=== PATIENT | female | born 1975 | race Caucasian/White ===

== ENCOUNTER 2023-11-30 13:43 | Outpatient (OUT) | payer BC, SELFPAY | END 2023-11-30 13:44 | disposition home or self-care (01) | LOC: PST 13:44 | PROVIDERS: PCP Family Medicine; Visit Provider Surgery | DX: Z01.818 Encounter for other preprocedural examination (principal); Z12.11 Encounter for screening for malignant neoplasm of colon ==

== ENCOUNTER 2023-12-07 09:08 | Day surgery (SDC) | payer BC, SELFPAY ==
[2023-12-07 09:39] LABS: Glucometer 188 mg/dL (74-106)
[2023-12-07 09:40] VITALS: BP 125/93; PULSE 99; TEMP 36.2; O2SAT 97; BMI 38.6
[2023-12-07] MEDS: LACTATED RINGER'S SOLUTION 1,000 ML 50 ML IV (09:51)
[2023-12-07 09:58] LABS: HCG Qualitative NEGATIVE (NEGATIVE)
[2023-12-07 12:25] VITALS: BP 94/52; PULSE 76; TEMP 36.3; O2SAT 96
[2023-12-07 12:40] VITALS: BP 104/62; PULSE 72; O2SAT 96
[2023-12-07 12:55] VITALS: BP 107/83; PULSE 74; O2SAT 99
--- NOTE | 2023-12-07 13:07 | PM.GSPRC ---
Date of procedure: 12/07/23 Indications for Procedure: screening colonoscopy Pre-op diagnosis: screening colonoscopy Post-op diagnosis: same as pre-op Procedure: Previous colonoscopy: never screening colonoscopy PROCEDURE: The patient was given IV conscious sedation.? The patient's SPO2 remained above 90% throughout the procedure. The colonoscope was inserted per rectum and advanced under direct vision to the cecum without difficulty.? The prep was good.? Findings: Terminal ileum os: normal Cecum/Ascending colon: normal Transverse colon: normal Descending/Sigmoid colon: normal Rectum/Anus: examined in normal and retroflexed positions and was normal Withdrawal Time was (minutes): 10 The colon was decompressed and the scope was removed.? The patient tolerated the procedure well. Recommendations/Plan: 1.? Lifestyle and dietary modifications as discussed 2.? F/U in 10 years for repeat c-scope 3.? Discussed with the family Findings: normal colonoscopy Anesthesia: MAC Surgeon: Polo Paez Procedure Summary: screening colonoscopy Estimated blood loss (mL): 0 Complications: No Pathology: none sent Condition: stable Disposition: PACU
== END 2023-12-07 12:50 | disposition home or self-care (01) ==
PROVIDERS: Anesthesiology; PCP Family Medicine; Visit Provider Surgery
PROC: (CPT 812; principal; 2023-12-07 10:10)
DX: Z12.11 Encounter for screening for malignant neoplasm of colon (principal); Z80.0 Family history of malignant neoplasm of digestive organs; Z79.82 Long term (current) use of aspirin; Z79.84 Long term (current) use of oral hypoglycemic drugs; J45.909 Unspecified asthma, uncomplicated; Z87.891 Personal history of nicotine dependence; E78.5 Hyperlipidemia, unspecified; F41.1 Generalized anxiety disorder; K21.9 Gastro-esophageal reflux disease without esophagitis; I10 Essential (primary) hypertension; D50.9 Iron deficiency anemia, unspecified; E11.9 Type 2 diabetes mellitus without complications; E55.9 Vitamin D deficiency, unspecified
CPT/HCPCS: 45378; 36415; 82948; 84703; J2704

== ENCOUNTER 2024-11-30 09:33 | Outpatient (OUT) | payer OTHER, SELFPAY ==
--- NOTE | 2024-11-30 | RT_ITS ---
[facility] Test Date: 2024-11-30 Pat Name: YVAN CLEARY Department: Room: - Gender: Female Orthopedic Dentist: Lizzy Guerrero RRT : 1975 Requested By: ABDULKADIR DING Order Number: [id number] Reading MD: Parrish Livingston Interpretive Statements Pulmonary function testing was completed according to ATS criteria. Findings were considered accurate and reproducible. No bronchodilator was administered due to normal spirometric values. Spirometry: -FEV1/FVC: Normal @ 84% -FEV1: Normal @ 88% -FVC: Normal @ 83% Lung volumes by plethysmography: -RV: Reduced @ 69% -TLC: Normal @ 86% Diffusion capacity: -DLCO: Severe reduction @ 45% when corrected for Hb 10.4g/dL Impressions: -Essentially normal spirometry and lung volumes with an isolated severe diffusion impairment. This pattern can be seen in, but not restricted to, cardiopulmonary vascular disorders, early interstitial lung disease, and early emphysema. Clinical correlation required. Electronically Signed On 11-30-2024 15:17:51 EDT by Parrish Livingston
--- NOTE | 2024-11-30 08:00 | CA_ITS ---
Patient Name: YVAN CLEARY MR#: [id number] : 1975 Exam Date: 11/30/2024 Ordering Doctor: DR Carlos Mauro . ECHOCARDIOGRAM REPORT PROCEDURE: CA ECHO DOPPLER COMPLETE INDICATIONS: hypertension, edema, shortness of breath on exertion, diabetes COMPARISON: None. DESCRIPTION: COMPLETE ECHOCARDIOGRAM Real-time transthoracic echocardiography with 2D, M-mode, spectral and color flow Doppler performed. QUALITY: Technical quality was good. LEFT VENTRICLE: Normal chamber size. Normal left ventricular wall thickness. Normal LV systolic function, No wall motion abnormalities. Calculated left ventricular ejection fraction is 67%. LV EF: 65% DIASTOLIC: Normal diastolic function. ATRIAL SEPTUM: Appears intact LEFT ATRIUM: Normal chamber size. RIGHT ATRIUM: Mild dilatation. RIGHT VENTRICLE: Normal chamber size. Normal right ventricular systolic function. TRICUSPID VALVE: Normal mobility and thickness. No stenosis with trivial regurgitation. No evidence of pulmonary hypertension.RVSP 31 mmHg MITRAL VALVE: Normal mobility and thickness. No evidence of mitral valve stenosis. There is no mitral annular calcification. Trivial mitral regurgitation. AORTIC VALVE: Normal trileaflet appearance. Normal leaflet mobility. No evidence of aortic valve stenosis. Multifocal calcifications.No aortic regurgitation. AORTIC ROOT: Normal diameter and appearance. Ascending aorta is normal in size PULMONIC VALVE: Normal thickness and mobility. No stenosis. No regurgitation. PERICARDIUM: No evidence of pericardial effusion. IVC: Not well visualized. PLEURA: CONCLUSION: Normal left ventricle chamber size. Normal left ventricular wall thickness. Normal LV systolic function, No wall motion abnormalities. Calculated left ventricular ejection fraction is 67%. Normal left ventricle diastolic function Normal right ventricle chamber size and systolic function. No evidence of pulmonary hypertension. RVSP 31 mmHg No significant valvular abnormalities. Adult Echocardiography Procedure Report Left Ventricle LVEDD (3.7 - 5.6 cm): 4.78 cm LVESD (2.2 - 4.0 cm): 2.90 cm LVIVS thickness (0.6 - 1.2 cm): 0.92 cm LVPW thickness (0.5 - 1.0 cm): 0.81 cm e': 0.10 m/s E - e': 10.82 LVOT Max Gradient: 4.66 mm[Hg] LVOT Area (cm2): 1.08 m/s Peak Velocity (LVOT): 1.08 m/s Mean Velocity (LVOT): 0.71 m/s LVOT Diameter 2.18 cm Left Ventricular Ejection Fraction: Left Atrium LA Volume Index (2D A2C): 30.61 ml/m2 Left Atrium Systolic Dimension: 4.08 cm Mitral Valve MV E to A Ratio: 1.10 MV Max Gradient: MV Mean Gradient: Mitral Valve A-Wave Peak Velocity: 0.99 m/s Mitral Valve E-Wave Peak Velocity: 1.09 m/s Cardiovascular Orifice Area: Right Ventricle RV Internal Diastolic Dimension: Aorta AO Root Diam: 3.43 cm Ascending Ao Diam: 2.69 cm Aortic Valve AoV Area (Peak Reyes): 2.52 cm2, 2.52 cm2 AoV Area (VTI): 2.77 cm2, 2.77 cm2 Deceleration [place]: Pressure Half-Time: Peak Velocity(Antegrade Flow): 1.59 m/s Peak Gradient(Antegrade Flow): 10.16 mm[Hg] Mean Velocity(Antegrade Flow): 1.15 m/s Mean Gradient(Antegrade Flow): 5.84 mm[Hg] Velocity Time Integral: 35.13 cm Tricuspid Valve Peak Velocity (Regurgitant Flow): 2.54 m/s, 2.63 m/s Peak Velocity: Pulmonic Valve Mean Gradient: 3.56 mm[Hg] Mean Velocity: 0.87 m/s Peak Velocity: 1.31 m/s, 1.18 m/s Peak Gradient: 5.59 mm[Hg], 6.84 mm[Hg] Right Atrium Right Atrium Systolic Pressure: 58.75 ml, 58.75 ml Dictated by: Katie Fang MD on 11/30/2024 at 16:21 Approved by: Katie Fang MD on 11/30/2024 at 16:29
[2024-11-30 08:05] LABS: Hemoglobin 10.4 g/dL (12.0-16.0)
--- NOTE | 2024-11-30 09:34 | MM_ITS ---
Patient Name: YVAN CLEARY MR#: [id number] : 1975 Exam Date: 11/30/2024 Ordering Doctor: DR Carlos Mauro . RADIOLOGY REPORT PROCEDURE: MM TOMOSYNTHESIS SCREENING BI COMPARISON: MG MAMM LT DIAG W CAD, 12/30/2017. MG MAMM MARTHA DIAG W CAD, 07/05/2017. MG MAMM MARTHA SCRN W CAD DIG, 10/25/2015. MG MAMM MARTHA SCRN W CAD DIG, 04/05/2014. INDICATIONS: Screening Calculator Name NCI Breast Cancer Risk Assessment Tool 5 Year Breast Cancer Risk 0.90% Lifetime Breast Cancer Risk 8.30% Personal Breast Cancer No Personal Ovarian Cancer No Treatments None Family Cancers None LOCATION: [facility] BREAST COMPOSITION: The breasts are heterogeneously dense,which may obscure small masses. FINDINGS: RIGHT BREAST: No significant suspicious finding. Left breast asymmetry posterior central portion of the left there breast seen with CC view. Spot compression imaging is recommended. may require targeted left breast ultrasound. DIAGNOSTIC CATEGORY 0--INCOMPLETE: NEED ADDITIONAL IMAGING EVALUATION. RECOMMENDATIONS: ADDITIONAL MAMMOGRAPHIC VIEWS REQUIRED: LEFT BREAST - spot compression ULTRASOUND: LEFT BREAST PLEASE NOTE: A NORMAL MAMMOGRAM DOES NOT EXCLUDE THE POSSIBILITY OF BREAST CANCER. A CLINICALLY SUSPICIOUS PALPABLE LUMP SHOULD BE BIOPSIED. Dictated by: Flaco Plascencia DO on 11/30/2024 at 12:01 Approved by: Flaco Plascencia DO on 11/30/2024 at 12:11
== END 2024-11-30 09:34 | disposition home or self-care (01) ==
LOC: CARD 09:34
PROVIDERS: PCP Family Medicine; Visit Provider Family Medicine
DX: Z12.31 Encounter for screening mammogram for malignant neoplasm of breast (principal); I10 Essential (primary) hypertension; R60.0 Localized edema; R06.02 Shortness of breath; R92.8 Other abnormal and inconclusive findings on diagnostic imaging of breast
CPT/HCPCS: 36415; 77063; 77067; 85018; 93306; 94010; 94726; 94729

== ENCOUNTER 2025-06-26 08:46 | Outpatient (OUT) | payer OTHER, SELFPAY ==
--- OUTSIDE RECORDS SUMMARY | 2025-06-16 18:34 | XMS_ITS | Encounter Summary ---
Author Organization [facility] Address [address], [address] [place] [address] Care Team Providers Care Advertising Assistant Manager Name Role Phone Carlos Mauro MD Primary Care Provider + Reason for Visit * ReasonCommentsHead InjuryL forehead abrasion, contusion Encounter Details DateTypeDepartmentCare Team (Latest Contact Info)Aveyxvirhpo08/01/2025 7:34 PM EDT - 06/16/2025 8:35 PM EDTEmerTurn[facility] [address] [id number] Georges Wright MD [address] [place] [address] Closed head injury, initial encounter (Primary Dx); Contusion of forehead, initial encounter; Abrasion of forehead, initial encounter Discharge Disposition: Home or Self Care Social History Tobacco UseTypesPacks/DayYears UsedDateSmoking Tobacco: Never Assessed CommentsNoSex and Gender InformationValueDate RecordedSex Assigned at BirthNot on fileLegal VtjTbuelz56/10/2013 2:03 PM ESTGender IdentityNot on fileSexual OrientationNot on filedocumented as of this encounter Last Filed Vital Signs Vital SignReadingTime TakenCommentsBlood Dkefviwv565/8706/16/2025 7:30 PM EDT Nwlia030506/16/2025 7:30 PM FSJVdtcpxzwbpi81.7 ??C (98.1 ??F)06/16/2025 7:30 PM EDTRespiratory Hehp610508/16/2024 7:30 PM EDTOxygen Gyzujaqkev34%06/16/2025 7:30 PM EDTInhaled Oxygen Concentration--Auxcei181 kg (258 lb)06/16/2025 7:30 PM EDT Zahojf238.1 cm (5' 5 )06/16/2025 7:30 PM EDTBody Mass Index42.9306/16/2025 7:30 PM EDTdocumented in this encounter Discharge Instructions * Discharge Instructions* Georges Wright MD - 06/16/2025 8:13 PM EDT Reasons to return to the ED: Decreasing, fluctuating, or loss of consciousness Increasing confusion or irritability Numbness in arms or legs Pupils become unequal in size Repeated vomiting Seizures Slurred speech or inability to speak Inability to recognize people or places Worsening headaches IT IS OK TO: Go to sleep Use acetaminophen (Tylenol) for headaches Use ice pack on head or neck Eat a light diet Return to school THERE IS NO NEED TO: Check eyes with flashlight Wake up every hour Test reflexes Remain in bed DO NOT: Workout or play sports until you are back to normal Use technology (i.e. no computer, texting, video games, and television) Drink alcohol or use recreational substances documented in this encounter Medications at Time of Discharge MedicationSigDispense QuantityRefillsLast FilledStart DateEnd Date aspirin 81 MG EC tablet Take 1 tablet by mouth daily atorvastatin (LIPITOR) 40 MG tablet Take 1 tablet by mouth daily glipiZIDE (GLUCOTROL) 10 MG tablet Take 2 tablets by mouth 2 times daily (before meals) hydrOXYzine HCl (ATARAX) 10 MG tablet Take 2.5 tablets by mouth 3 times daily as needed for Itching losartan (COZAAR) 25 MG tablet Take 1 tablet by mouth daily montelukast (SINGULAIR) 10 MG tablet Take 1 tablet by mouth nightly pioglitazone (ACTOS) 30 MG tablet Take 1 tablet by mouth dailydocumented as of this encounter Plan of Treatment Not on file documented as of this encounter Visit Diagnoses Diagnosis Closed head injury, initial encounter- Primary Contusion of forehead, initial encounter Abrasion of forehead, initial encounter documented in this encounter Care Teams Team MemberRelationshipSpecialtyStart DateEnd Date Carlos Mauro MD [address] [place] [address] [facility] Jlnvplfk09/1/25documented as of this encounter
--- OUTSIDE RECORDS SUMMARY | 2025-06-26 08:50 | XMS_ITS | Clinical Summary ---
Author Organization [facility] Address [address], [address] [place] [address] Care Team Providers Care Rehab Department Manager Name Role Phone Carlos Mauro MD Primary Care Provider + Allergies No known active allergies Medications MedicationSigDispense QuantityRefillsLast FilledStart DateEnd DateStatus aspirin 81 MG EC tablet Take 1 tablet by mouth dailyActive atorvastatin (LIPITOR) 40 MG tablet Take 1 tablet by mouth dailyActive glipiZIDE (GLUCOTROL) 10 MG tablet Take 2 tablets by mouth 2 times daily (before meals)Active hydrOXYzine HCl (ATARAX) 10 MG tablet Take 2.5 tablets by mouth 3 times daily as needed for ItchingActive losartan (COZAAR) 25 MG tablet Take 1 tablet by mouth dailyActive montelukast (SINGULAIR) 10 MG tablet Take 1 tablet by mouth nightlyActive pioglitazone (ACTOS) 30 MG tablet Take 1 tablet by mouth dailyActive Encounters DateTypeDepartmentCare LddrLfyfuzrqufi15/01/2025 7:34 PM EDT - 06/16/2025 8:35 PM EDTEmerUM[facility] [address] [phone] Georges Wright MD Closed head injury, initial encounter (Primary Dx); Contusion of forehead, initial encounter; Abrasion of forehead, initial encounter Discharge Disposition: Home or Self Care06/16/2025Travelfrom Last 3 Months Social History Tobacco UseTypesPacks/DayYears UsedDateSmoking Tobacco: Never Assessed CommentsNoSex and Gender InformationValueDate RecordedSex Assigned at BirthNot on fileLegal CkkGzsbom02/10/2013 2:03 PM ESTGender IdentityNot on fileSexual OrientationNot on file Last Filed Vital Signs Vital SignReadingTime TakenCommentsBlood Pqbuwjcl889/8711 7:30 PM EDT Aquoq986606/16/2025 7:30 PM AEPIymmpfnmrcj99.7 ??C (98.1 ??F)06/16/2025 7:30 PM EDTRespiratory Krwx971108/16/2024 7:30 PM EDTOxygen Utfdcmgqbm34%06/16/2025 7:30 PM EDTInhaled Oxygen Concentration--Plcfsc051 kg (258 lb)06/16/2025 7:30 PM EDT Carxyi658.1 cm (5' 5 )06/16/2025 7:30 PM EDTBody Mass Index42.9306/16/2025 7:30 PM EDT Plan of Treatment Health MaintenanceDue DateLast DoneCommentsDTaP/Tdap/Td vaccine (1 - Tdap) 1992Flu vaccine (#1)03/16/2025OVID-19 Vaccine ( - season) 2025Polio vaccineAged OutNo longer eligible based on patient's age to complete this topic Insurance Care Teams Team MemberRelationshipSpecialtyStart DateEnd Carlos Mauro MD [address] [place] [address] PCP - GeneralFamily Esuzlchl88/1/25
--- OUTSIDE RECORDS SUMMARY | 2025-06-26 08:50 | XMS_ITS | Clinical Summary ---
Author Organization [employer] [facility] tem Address [id number] [place] [address] Care Team Providers Care Audiology Assistant Name Role Phone Carlos Mauro MD Primary Care Provider [phone] Allergies Active AllergyReactionsCriticalityNoted PferLmedpjlsKwuthizbhrDleeOcg68/01/2017 Medications MedicationSigDispense QuantityRefillsLast FilledStart DateEnd DateStatus atorvastatin (LIPITOR) 40 mg tablet 06/08/2017Active TRUE METRIX GLUCOSE TEST STRIP strip 06/23/2017Active loratadine (CLARITIN) 10 mg tablet 07/04/2017Active losartan (COZAAR) 25 mg tablet 06/03/2017Active metFORMIN XR (GLUCOPHAGE-XR) 500 mg 24 hr tablet 07/07/2017Active montelukast (SINGULAIR) 10 mg tablet 07/04/2017Active naproxen (NAPROSYN) 500 mg tablet 06/08/2017Active famotidine (PEPCID) 20 mg tablet 07/04/2017Active omega-3 fatty acids-fish oil (FISH OIL) 300-1,000 mg capsule Take 2 g by mouth daily.Active L. RHAMNOSUS GG/INULIN (CULTURELLE PROBIOTICS ORAL) Take by mouth.Active fluticasone (FLONASE) 50 mcg/actuation nasal spray Administer 1 spray into each nostril daily.Active Active Problems No known active problems Family History Medical HistoryRelationNameCommentsDiabetesBrotherBell's palsyFatherDiabetes FatherHypertensionFatherOsteoarthritisMotherBreast cancerPaternal AuntPhyllis DiabetesSisterRelationNameStatusCommentsBrotherAliveFatherAliveMotherDeceased Paternal AuntPhyllisAliveSisterAlive Social History Tobacco UseTypesPacks/DayYears UsedDateSmoking Tobacco: FormerCigarettesQuit: 2001Smokeless Tobacco: NeverAlcohol UseStandard Drinks/WeekCommentsYes0 (1 standard drink = 0.6 oz pure alcohol)ChildcareAnswerDate RecordedChildcare Iqidqwz1901/25/2019EmploymentAnswerDate KweuwzbkIgfddrjzdeTbxutsd11/12/2019Purpose - LifeAnswerDate RecordedPurpose and direction in iipxLamgwws56/11/2021 CommentsNoSex and Gender InformationValueDate RecordedSex Assigned at BirthNot on fileLegal KkoLdbjlr68/06/2015 11:52 AM EDTGender IdentityNot on fileSexual OrientationNot on file Last Filed Vital Signs Vital SignReadingTime TakenCommentsBlood Miaxehjy544/8201 8:53 AM EST Pulse--Temperature--Respiratory Rate--Oxygen Saturation--Inhaled Oxygen Concentration--Kqypkt753.3 kg (263 lb)12/05/2024 9:49 AM IPPAwhttk958.1 cm (5' 5 )12/05/2024 9:49 AM EDTBody Mass Index43.77012/05/2024 9:49 AM EDT Plan of Treatment Health MaintenanceDue DateLast DoneCommentsDepression Doohpiwlc07/04/1985Tobacco Juqkqkjjv42/04/1985Adult BMI Follow Up Plan1991Pap Smear1994Zoster (Shingles) Vaccine (1 of 2)2023Influenza Cruqapq41/, 05/10/2019Adult BMI Exfevzphl80DTaP,Tdap and Td Vaccines (2 - Td or Tdap) Medical Devices Not on file Insurance Care Teams Team MemberRelationshipSpecialtyStart DateEnd Date Carlos Mauro MD [facility] - Phbegnj69/27/17
--- OUTSIDE RECORDS SUMMARY | 2025-06-26 08:50 | XMS_ITS | Clinical Summary ---
Author Organization [facility] Address [address] [place] [address] Care Team Providers Care Radio Broadcaster Name Role Phone System, Provider Not In Primary Care Provider Un available Allergies No known active allergies Medications MedicationSigDispense QuantityRefillsLast FilledStart DateEnd DateStatus cefUROXime (CEFTIN) 500 MG tablet Take 500 mg by mouth 2 (two) times a day .Active FLUoxetine (PROZAC) 10 MG capsule Take 10 mg by mouth daily .Active loratadine (CLARITIN) 10 mg tablet Take 10 mg by mouth daily .Active losartan (COZAAR) 25 MG tablet Take 25 mg by mouth daily .Active famotidine (PEPCID) 20 MG tablet Take 20 mg by mouth 2 (two) times a day .Active atorvastatin (LIPITOR) 40 MG tablet Take 40 mg by mouth daily .Active montelukast (SINGULAIR) 10 mg tablet Take 10 mg by mouth nightly .Active glipiZIDE (GLUCOTROL) 10 MG tablet Take 10 mg by mouth 2 (two) times a day before meals .Active Social History Tobacco UseTypesPacks/DayYears UsedDateSmoking Tobacco: Never Assessed CommentsUnknownSex and Gender InformationValueDate RecordedSex Assigned at Not on fileLegal FctDtjbou04/20/2019 1:12 PM ESTGender LdnzismmKficcn15/30/2021 10:07 AM ESTSexual BpkxhopkiizHvxanypy32/30/2021 10:07 AM EST Last Filed Vital Signs Vital SignReadingTime TakenCommentsBlood Iajjvttx708/801 10:00 AM EST Osqjd057508/14/2021 10:00 AM SPVRlnbvauukuf10.9 ??C (98.4 ??F)08/14/2021 10:00 AM ESTRespiratory Bxgs8123 10:00 AM ESTOxygen Ukwpfdqbra42%08/14/2021 10:00 AM ESTInhaled Oxygen Concentration--Daoutu154.6 kg (235 lb)08/14/2021 10:00 AM RGQTktmdl603.1 cm (5' 5 )08/14/2021 10:00 AM ESTBody Mass Index39.111 10:00 AM EST Plan of Treatment Not on file Insurance Care Teams Team MemberRelationshipSpecialtyStart DateEnd Date System, Provider Not In PCP - Ocbeosw22/30/21
--- OUTSIDE RECORDS SUMMARY | 2025-06-26 08:50 | XMS_ITS | Clinical Summary ---
Author Organization [facility] Healthcare Address [address] [place] [address] Care Team Providers Care Senior Engineering Team Leader Name Role Phone Carlos Mauro MD Primary Care Provider [phone] Allergies Active AllergyReactionsCriticalityNoted NgkoFderevhgColwauyendOnggPbh18/01/2017 Temenphjixpch09/25/2024Metformin XhaOqlugkwa52/09/8543Eaxsrmwysmh94/25/2024 Medications MedicationSigDispense QuantityRefillsLast FilledStart DateEnd DateStatus famotidine (Pepcid) 20 MG tablet Take 20 mg by mouth in the morning.Active aspirin 81 MG EC tablet Take 81 mg by mouth DailyActive Calcium 250 MG capsule 08/16/2019Active cholecalciferol (Vitamin D-3) 10 MCG (400 UNIT) capsule 08/16/2019Active fluticasone (Flonase) 50 MCG/ACT nasal spray Administer 1 spray into affected nostril(s) in the morning.08/16/1999Active glucose blood (True Metrix Blood Glucose Test) test strip Indications:Type 2 diabetes mellitus with hyperglycemia, without long-term current use of insulin (HCC)1 each by Other route Daily 50 each ctive ferrous sulfate 325 (65 Fe) MG EC tablet Take 325 mg by mouth in the morning and 325 mg at noon and 325 mg in the evening. Take with meals. Do not crush, chew, or split..Active montelukast (Singulair) 10 MG tablet Indications:Seasonal allergic rhinitis due to pollenTake 1 tablet (10 mg) by mouth at bedtime 90 tablet ctive losartan (Cozaar) 25 MG tablet Indications:Essential (primary) hypertensionTAKE 1 TABLET BY MOUTH DAILY 90 tablet 4Active albuterol HFA 90 mcg/act inhaler Indications:Mild intermittent asthma without complication (HCC)Inhale 2 puffs every 4 (four) hours if needed for wheezing 18 g 4Active pioglitazone (Actos) 45 MG tablet Indications:Type 2 diabetes mellitus with hyperglycemia, without long-term current use of insulin (HCC)TAKE 1 TABLET BY MOUTH DAILY 30 tablet 5035Active hydrOXYzine HCl (Atarax) 25 MG tablet Indications:Generalized anxiety disorderTAKE 1 TABLET BY MOUTH FOUR TIMES DAILY NEEDED FOR ITCHING 120 tablet 3045Active glipiZIDE (Glucotrol) 10 MG tablet Indications:Type 2 diabetes mellitus with hyperglycemia (HCC)Take 2 tablets (20 mg) by mouth in the morning and 2 tablets (20 mg) before bedtime. 120 tablet 505Active atorvastatin (Lipitor) 40 MG tablet Indications:DyslipidemiaTake 1 tablet (40 mg) by mouth at bedtime 30 tablet 505Active Active Problems ProblemNoted DateDiagnosed DateAbnormal mammogram of left ivnxuh7711/30/2024SOB (shortness of breath) on /26/2025 Assessment & Plan (11/08/2024 1:40 PM EDT): Check echo and PFTs. Bilateral leg edema11/08/2024 Assessment & Plan (11/08/2024 1:39 PM EDT): Recent edema and SOB. Check echo. Annual physical exam11/08/2024 Assessment & Plan (11/08/2024 1:37 PM EDT): Due for labs. Discussed proper diet and regular aerobic exercise. Need aerobic exercise 5-6 days a week for 30 minutes at a time. Smaller portions and limit total calories. Colonoscopy every 10 years. Tetanus every 10 years. Advised not to smoke. Mild intermittent asthma without oihuqvytydvd34/26/2024 Assessment & Plan (05/10/2024 8:23 AM EDT): Occasional symptoms and use albuterol PRN. Assessment & Plan (02/09/2024 7:55 AM EDT): Occasional symptoms and use albuterol PRN. Class 3 severe obesity due to excess calories with serious comorbidity and body mass index (BMI) of40.0 to 44.9 in adult12/07/2023 Assessment & Plan (11/08/2024 1:39 PM EDT): Weight loss indicated Assessment & Plan (02/09/2024 7:57 AM EDT): Weight loss indicated Encounter for long-term (current) use of hnqgkvjpbed55/23/2024Essential hypertension, qhohve6611/08/2023 Assessment & Plan (11/08/2024 1:40 PM EDT): BP elevated but previously normal and need to monitor PRN. Assessment & Plan (05/10/2024 8:23 AM EDT): BP controlled and monitor PRN. Assessment & Plan (02/09/2024 7:55 AM EDT): BP controlled and monitor PRN. Assessment & Plan (11/08/2023 8:54 AM EDT): BP controlled and monitor PRN. Allergic rhinitis due to bnmurx6111/08/2023 Assessment & Plan (02/09/2024 7:55 AM EDT): Symptoms controlled with medication and continue. Assessment & Plan (11/08/2023 8:54 AM EDT): Symptoms controlled with medication and continue. Hxtkcfevzzbx33/25/2024Generalized anxiety afotjdji93/25/2024 Assessment & Plan (05/10/2024 8:23 AM EDT): Symptoms stable without prozac and monitor. Use hydroxyzine PRN. Assessment & Plan (11/08/2023 8:54 AM EDT): Mood controlled with prozac and continue. Use hydroxyzine PRN. Gastroesophageal reflux dewbqbq1811/08/2023 Assessment & Plan (02/09/2024 7:55 AM EDT): Symptoms controlled with pepcid and continue. Assessment & Plan (11/08/2023 8:54 AM EDT): Symptoms controlled with pepcid and continue. Iron deficiency anemia, whxenugaewl48/25/2024Type 2 diabetes mellitus with hyperglycemia, without long-term current use of zzvnzwt1811/08/2023 Assessment & Plan (11/08/2024 1:40 PM EDT): Due for A1C. Assessment & Plan (05/10/2024 8:23 AM EDT): Reports BS improved and recent A1C 7.4. Stick to ADA diet and limit carbs. Assessment & Plan (02/09/2024 7:55 AM EDT): Reports BS improved and due for A1C. Stick to ADA diet and limit carbs. Assessment & Plan (11/08/2023 8:54 AM EDT): BS elevated and will again attempt prior auth for rybelsus. Stick to ADA diet and limit carbs. Vitamin D phzrptexlb90/25/2024 Resolved Problems ProblemNoted DateDiagnosed DateResolved DateInflamed skin tag05/10/2024 11/08/2024 Assessment & Plan (05/15/2024 8:53 AM EDT): Used liquid nitrogen to perform 3 freeze thaw cycles and patient tolerated well. Warned may form blister and likely will take multiple treatments. If develop new or worsening symptoms call. Assessment & Plan (05/10/2024 8:23 AM EDT): Irritated skin tags and requests removal. Return for cryo. Encounters DateTypeDepartmentCare ZpsyWfzanairtek72/19/2025Refill [facility] [address] [place] [address] Carlos Mauro MD Dyslipidemiafrom Last 3 Months Family History Medical HistoryRelationNameCommentsDiabetesBrother 1Steve FeuchtHyperlipidemia Brother 1Steve FeuchtHypertensionBrother 1Steve FeuchtDiabetesBrother 2John FeuchtHyperlipidemiaBrother 2John FeuchtHypertensionBrother 2John FeuchtDiabetes FatherLarry FeuchtHeart diseaseFatherLarry FeuchtHyperlipidemiaFatherLarry FeuchtHypertensionFatherLarry FeuchtArthritisMotherPenny FeuchtDiabetesMother Lisa FeuchtHeart diseaseMotherPenny FeuchtHyperlipidemiaMotherPenny Feucht HypertensionMotherPenny FeuchtDiabetesSisterCarie BurkesHyperlipidemiaSister Liz BurkesHypertensionSisterCarie BurkesRelationNameStatusCommentsBrother 1 Tyree FeuchtBrother 2John FeuchtFatherLarry FeuchtMotherPenny FeuchtSisterCarie Marcus Social History Tobacco UseTypesPacks/DayYears UsedDateSmoking Tobacco: FmyrrdGykscahgit369 08/16/1986 - 08/16/2000Smokeless Tobacco: Never Tobacco Cessation:Counseling Given: Not Answered Alcohol UseStandard Drinks/WeekCommentsNot Currently0 (1 standard drink = 0.6 oz pure alcohol)maybe 2 glasses of wine/beer/mixed drink once a monthSocial Connection and Isolation PanelAnswerDate RecordedIn a typical week, how many times do you talk on the phone with family, friends, or neighbors?Three times a week11/01/2023How often do you get together with friends or relatives?Once a week11/01/2023How often do you attend muslim or quaker services?Never 4Do you belong to any clubs or organizations such as muslim groups, unions, fraternal or athletic groups, or school groups?No11/01/2023How often do you attend meetings of the clubs or organizations you belong to?Never11/01/2023 Are you , , , , never , or living with a partner?Xtqdhdd91/18/2024AUDIT-CAnswerDate RecordedQ1: How often do you have a drink containing alcohol?Monthly or less11/01/2023Q2: How many drinks containing alcohol do you have on a typical day when you are drinking?1 or Q3: How often do you have six or more drinks on one occasion?Never11/01/2023Overall Financial Resource Strain (CARDIA)AnswerDate RecordedHow hard is it for you to pay for the very basics like food, housing, medical care, and heating?Somewhat hard11/01/2023[facility] [place] [facility] - Occupational Stress QuestionnaireAnswerDate RecordedDo you feel stress - tense, restless, nervous, or anxious, or unable to sleep at night because yourmind is troubled all the time - these days?Not at all11/01/2023Exercise Vital SignAnswerDate RecordedOn average, how many days per week do you engage in moderate to strenuous exercise (like a brisk walk)?1 day11/01/2023On average, how many minutes do you engage in exercise at this level?10 min11/01/2023Hunger Vital SignAnswerDate Recorded Within the past 12 months, you worried that your food would run out before you got the money to buymore.Never true11/01/2023Within the past 12 months, the food you bought just didn't last and you didn't have money to get more.Never true 11/01/2023RAPARE - TransportationAnswerDate RecordedIn the past 12 months, has lack of transportation kept you from medical appointments or from getting medications?No11/01/2023In the past 12 months, has lack of transportation kept you from meetings, work, or from getting things needed for daily living?No 11/01/2023Housing Stability Vital SignAnswerDate RecordedIn the last 12 months, was there a time when you were not able to pay the mortgage or rent on time?No 11/01/2023In the last 12 months, how many places have you lived?In the last 12 months, was there a time when you did not have a steady place to sleep or slept in hoopleelter (including now)?No03/18/2024CommentsUnknown Sex and Gender InformationValueDate RecordedSex Assigned at BirthNot on file Legal DvbJlefdr61/27/2023 9:03 AM EDTGender IdentityNot on fileSexual OrientationNot on file Last Filed Vital Signs Vital SignReadingTime TakenCommentsBlood Gvkfctgu902/90011/08/2024 1:14 PM EDT Ugqcj54243/26/2025 1:14 PM QJVWfmcvrhmdzl04.4 ??C (97.5 ??F)11/08/2024 1:14 PM EDTRespiratory Mefh365411/08/2024 1:14 PM EDTOxygen Zgwlcydrva32%11/08/2024 1:14 PM EDTInhaled Oxygen Concentration--Oonecv587 kg (260 lb)11/08/2024 1:14 PM EDT Vrstee896.1 cm (5' 5 )11/08/2024 1:14 PM EDTBody Mass Index43.27011/08/2024 1:14 PM EDT Plan of Treatment Not on file Insurance * Guarantor: Latosha Cleary TypeRelation to PatientDate of PhoneBilling AddressPersonal/EinjrhZlvt[address] [address] Care Teams Team MemberRelationshipSpecialtyStart DateEnd Date Carlos Mauro MD PCP - GeneralFamily Medicine09/21/23
--- OUTSIDE RECORDS SUMMARY | 2025-06-26 08:50 | XMS_ITS | Encounter Summary ---
Author Organization [facility] Address [address], [address] [place] [address] Care Team Providers Care Lime Trimmer Name Role Phone Carlos Mauro MD Primary Care Provider + Encounter Details DateTypeDepartmentCare Team (Latest Contact Info)Ddeklofqwqz16/01/2025Travel Social History Tobacco UseTypesPacks/DayYears UsedDateSmoking Tobacco: Never Assessed CommentsNoSex and Gender InformationValueDate RecordedSex Assigned at BirthNot on fileLegal XfzXhwibz94/10/2013 2:03 PM ESTGender IdentityNot on fileSexual OrientationNot on filedocumented as of this encounter Plan of Treatment Not on file documented as of this encounter Visit Diagnoses Not on filedocumented in this encounter Care Teams Team MemberRelationshipSpecialtyStart DateEnd Date Carlos Mauro MD [address] [place] [address] PCP - GeneralFamily Uacqwuxx40/1/25documented as of this encounter
--- NOTE | 2025-06-26 08:55 | US_ITS ---
Patient Name: YVAN CLEARY MR#: [id number] : 1975 Exam Date: 06/26/2025 Ordering Doctor: DR ABDULKADIR DING . RADIOLOGY REPORT PROCEDURE: MM TOMOSYNTHESIS DIAGNOSTIC LT, 06/26/2025, 08:52 US BREAST LT LIMITED, 06/26/2025, 10:02 COMPARISON: MM TOMOSYNTHESIS DIAGNOSTIC LT, 12/05/2024. MM TOMOSYNTHESIS SCREENING BI, 11/30/2024. MG MAMM LT DIAG W CAD, 12/30/2017. MG MAMM MARTHA DIAG W CAD, 07/05/2017. INDICATIONS: Abnormal Mammogram Of Left Breast Calculator Name NCI Breast Cancer Risk Assessment Tool 5 Year Breast Cancer Risk 1.00% Lifetime Breast Cancer Risk 8.10% Personal Breast Cancer No Personal Ovarian Cancer No Treatments None Family Cancers None LOCATION: [facility] BREAST COMPOSITION: The breasts are heterogeneously dense, which may obscure small masses. FINDINGS: LEFT BREAST: No significant suspicious finding. There is redemonstration of a focal asymmetry approximately 9 o'clock position 12 cm with a within the left breast which partially dissipates on spot compressed views suggesting summation of area of dense fibroglandular tissue. This is unchanged when compared to the prior exam. The Limited left breast ultrasound: In the region of mammographic abnormality there is dense fibroglandular tissue. There is no evidence of mass, application systems architect starts cover atypical calcification. In the left breast at the 9 o'clock position 2.8 cm from the nipple is a tiny anechoic simple appearing cyst measuring 2 x 2 by 2 millimeters in greatest dimension. DIAGNOSTIC CATEGORY 3--PROBABLY BENIGN FINDING. THE FOLLOWING FINDING(S) HAS A HIGH PROBABILITY OF A BENIGN ETIOLOGY: RECOMMENDATIONS: SHORT TERM FOLLOW-UP DIAGNOSTIC MAMMOGRAM LEFT BREAST IN 6 MONTHS. The patient is due for bilateral marker face in December of 2025. Close attention to the left breast with mammographic follow-up is recommended. Dictated by: Wilner Vasquez MD on 06/26/2025 at 10:17 Approved by: Wilner Vasquez MD on 06/26/2025 at 10:22
== END 2025-06-26 08:47 | disposition home or self-care (01) ==
LOC: MAMMO 08:46
PROVIDERS: PCP Family Medicine; Visit Provider Family Medicine
DX: R92.8 Other abnormal and inconclusive findings on diagnostic imaging of breast (principal)
CPT/HCPCS: 76642; 77065; G0279